=== PATIENT | female | born 1990 | race Caucasian/White ===

== ENCOUNTER 2017-10-31 21:09 | Emergency (ER) | payer OTHER ==
[2017-10-31] MEDS ORDERED: IBUPROFEN 200 MG TAB PO ONE (21:26)
[2017-10-31] MEDS ORDERED: LIDOCAINE 1% 10 ML VIAL INJ ONE (21:26)
[2017-10-31 21:27] VITALS: BP 122/83; TEMP 97.6; O2SAT 98
[2017-10-31] MEDS ORDERED: NEOMYCIN-BACITRACIN-POLYMYXIN 0.9 GM UD TOP ONE (21:28)
--- NOTE | 2017-10-31 21:29 | ED.PDOC ---
History of Present Illness - General Chief Complaint: Laceration Stated Complaint: laceration Time Seen by Provider: 10/31/17 21:26 Source: patient Exam Limitations: no limitations - History of Present Illness Initial Comments: patient comes in with laceration to her right thumb that occurred at work approximately 20 minutes ago. Patient states she was opening a bottle and it was already broken. Patient states she has a large shard that cut her with a linear laceration and she did not have any small pieces. For that reason patient is refusing x-ray and she is a self-pay patient and feels certain that there is no glass in the area. Patient does understand that we with suggest medically that she get an x-ray to ensure there is no foreign bodies but this time she is willing to take that chance and declines x-ray. patient is otherwise healthy and denies any fever, chills, cough or cold symptoms. She has no past medical history as had a tetanus shot last 5 years. She only requests Advil for pain. Timing/Duration: just prior to arrival Allergies/Adverse Reactions: Allergies Tramadol Allergy (Verified 10/31/17 21:27) Home Medications: Ambulatory Orders Tramadol HCl [Ultram] 50 mg PO Q6HRS PRN #30 tab 09/28/15 Review of Systems - Review of Systems Constitutional: States: no symptoms reported EENTM: States: no symptoms reported Respiratory: States: no symptoms reported Cardiology: States: no symptoms reported Gastrointestinal/Abdominal: States: no symptoms reported Genitourinary: States: no symptoms reported Past Medical History (General) - Patient Medical History Hx Asthma: No Hx Congestive Heart Failure: No Hx Hypertension: No Hx Diabetes: No Hx MRSA: Yes - Buttock 2010 MRSA Source:: Wound Surgical History: tonsillectomy - Vaccination History Hx Tetanus, Diphtheria Vaccination: Yes Hx Influenza Vaccination: No - Social History Hx Tobacco Use: No - Female History Patient is a Female of Child Bearing Age (10 -59 yrs old): Yes Patient : No Family Medical History - Family History Mother Family History: No Known Living Status: Still Living Physical Exam - Physical Exam General Appearance: No apparent distress Eyes, Ears, Nose, Throat Exam: PERRL/EOMI Cardiovascular/Chest: normal peripheral pulses, regular rate, rhythm, no murmur Respiratory: chest non-tender, lungs clear, normal breath sounds Gastrointestinal/Abdominal: normal bowel sounds Skin Problem Location: other - 2.5 cm laceration inside 1st webbing. Procedures - Laceration/Wound Repair Right Medial Finger Wound's Depth, Shape: superficial Wound Explored: no foreign body removed Betadine Prep?: Yes Anesthesia: 1% Lidocaine Volume Anesthetic (cc's): 2.5 Wound Debrided: minimal Wound Repaired With: sutures Suture Size/Type: 3:0 Number of Sutures: 3 - Ethilon Layer Closure?: No Sterile Dressing Applied?: No Departure - Departure Clinical Impression: Laceration Disposition: Discharge to Home or Self Care Condition: Good Departure Forms: ED Discharge - Pt. Copy, Patient Portal Self Enrollment Instructions: DI for Laceration Repair, DI for Laceration Repair -- Simple Diet: resume usual diet Referrals: Barbara Lopez NP [Primary Care Provider] - 1-2 Weeks Home Medications: Ambulatory Orders Tramadol HCl [Ultram] 50 mg PO Q6HRS PRN #30 tab 09/28/15 Additional Instructions: work excuse for today. Patient should return to ER or call M.D. for temp greater than or equal to 100.5, redness, purulent drainage, swelling, or increased pain. [id number] Tylenol or Motrin may use for pain. Patient should have sutures removed in 7-10 days. In the meantime should be cleaned daily with warm soapy water and pat dry. Sutures should not be soaked and while at work she should keep the area covered
== END 2017-10-31 21:56 | disposition home or self-care (01) ==
LOC: ER 21:09
DX: S61.011A Laceration without foreign body of right thumb without damage to nail, initial encounter (principal); W25.XXXA Contact with sharp glass, initial encounter; Y92.89 Other specified places as the place of occurrence of the external cause; Y99.0 Civilian activity done for income or pay